=== PATIENT | female | born 1935 | race Caucasian/White ===

== ENCOUNTER 2019-05-27 14:21 | Outpatient (REF) | payer MEDICARE, OTHER, SELFPAY ==
[2019-05-27 15:18] LABS: Absolute Basophil Count 0.01 k/cumm (0.0-0.2); Absolute Eosinophil Count 0.14 k/cumm (0.0-0.7); Absolute Monocyte Count 0.42 k/cumm (0.11-0.7); Absolute Neutrophil Count 2.78 k/cumm (1.2-6.7); Basophils % 0.2; Eosinophils % 2.8; HCT 39.9 % (36.0-46.0); HGB 12.3 g/dL (12.0-15.5); Lymphocytes % 32.3; Mean Corp. HGB Concentration 30.8 g/dL (32.0-36.0); Mean Corpuscular Hemoglobin 30.4 pg (27.0-33.0); Mean Corpuscular Volume 98.8 fL (80-95); Mean Platelet Volume 10.8 fL (8.0-11.0); Monocytes % 8.5; Neutrophils % 56.2; Platelet Count 247 x1000/uL (130-400); RBC 4.04 m/cumm (4.00-5.20); White Blood Cell Count 4.95 k/cumm (4.4-10.8)
[2019-05-27 15:59] LABS: ALT 17 U/L (14-59); AST 14 U/L (15-37); Albumin 3.3 g/dL (3.4-5.0); Alkaline Phosphatase 92 U/L (46-116); Anion Gap 3.9 mmol/L (3-11); BUN 23 mg/dL (7-18); Bilirubin, Total 0.4 mg/dL (0.2-1.0); CO2 37.1 mmol/L (21.0-32.0); CREATININE 1.15 mg/dL (0.55-1.02); Calcium 9.1 mg/dL (8.5-10.1); Chloride 105 mmol/L (98-107); Estimated GFR 45.06 (mL/min/1.73m2); Glucose 108 mg/dL (74-106); Potassium 4.4 mmol/L (3.5-5.1); Sodium 146 mmol/L (136-145); TSH (W/Ref FT4) 0.12 uIU/mL (0.36-3.74); Total Protein 6.8 g/dL (6.4-8.2)
== END 2019-05-27 14:41 ==
LOC: NCHCN 14:21
PROVIDERS: PCP Internal Medicine; Visit Provider Family Medicine
DX: E03.9 Hypothyroidism, unspecified (principal); I50.21 Acute systolic (congestive) heart failure
CPT/HCPCS: 80053; 84439; 84443; 85025

== ENCOUNTER 2020-03-08 19:54 | Outpatient (REF) | payer MEDICARE, OTHER, SELFPAY ==
[2020-03-08 19:18] LABS: HCT 38.8 % (36.0-46.0); HGB 11.9 g/dL (11.2-15.7); MCHC 30.7 % (32.0-36.0); MCV 94.4 fL (80-95); MPV 11.3 fL (8.0-11.0); Platelet Count 258 10^3/uL (130-400); RBC 4.11 10^6/uL (3.93-5.22); RDW 13.3 % (11.7-14.6); RDW-SD 46.4 fL; WBC 5.66 10^3/uL (4.4-10.8)
[2020-03-08 19:31] LABS: Anion Gap 3.9 mmol/L (3-11); BUN 26 mg/dL (7-18); CO2 37.1 mmol/L (21.0-32.0); CREATININE 1.2 mg/dL (0.55-1.02); Calcium 9.2 mg/dL (8.5-10.1); Chloride 102 mmol/L (98-107); Glucose 117 mg/dL (74-106); Magnesium 2.1 mg/dL (1.8-2.4); Potassium 3.9 mmol/L (3.5-5.1); Sodium 143 mmol/L (136-145); TSH (W/Ref FT4) 0.04 uIU/mL (0.36-3.74)
[2020-03-08 19:51] LABS: FREE T4 1.66 ng/dL (0.76-1.46)
== END 2020-03-08 20:14 ==
LOC: NCHCN 19:54
PROVIDERS: PCP Internal Medicine; Visit Provider Family Medicine
DX: I10 Essential (primary) hypertension (principal); E78.5 Hyperlipidemia, unspecified; I48.91 Unspecified atrial fibrillation; Z79.01 Long term (current) use of anticoagulants
CPT/HCPCS: 80048; 85027; 83735; 84439; 84443

== ENCOUNTER 2020-05-11 16:33 | Outpatient (REF) | payer MEDICARE, OTHER, SELFPAY ==
[2020-05-11 17:00] LABS: TSH 0.17 uIU/mL (0.36-3.74)
[2020-05-12 08:39] LABS: T4 11.6 ug/mL (4.7-13.3)
[2020-05-13 17:20] LABS: T3, Total 112 ng/dL (97-169)
== END 2020-05-11 16:34 | disposition home or self-care (01) ==
LOC: NCHCN 16:33
PROVIDERS: PCP Internal Medicine; Visit Provider Family Medicine
DX: E03.9 Hypothyroidism, unspecified (principal)
CPT/HCPCS: 84436; 84443; 84480

== ENCOUNTER 2020-06-19 13:52 | Outpatient (REF) | payer MEDICARE, OTHER, SELFPAY ==
[2020-06-19 16:10] LABS: Anion Gap 5.2 mmol/L (3-11); BUN 29 mg/dL (7-18); CO2 35.8 mmol/L (21.0-32.0); CREATININE 1.3 mg/dL (0.55-1.02); Calcium 8.9 mg/dL (8.5-10.1); Chloride 106 mmol/L (98-107); Estimated GFR 39.02 (mL/min/1.73m2); FREE T4 1.46 ng/dL (0.76-1.46); Glucose 168 mg/dL (74-106); Magnesium 2.1 mg/dL (1.8-2.4); Potassium 3.9 mmol/L (3.5-5.1); Sodium 147 mmol/L (136-145)
== END 2020-06-19 13:53 | disposition home or self-care (01) ==
LOC: NCHCN 13:52
PROVIDERS: PCP Internal Medicine; Visit Provider Family Medicine
DX: I48.91 Unspecified atrial fibrillation (principal); E03.9 Hypothyroidism, unspecified; Z86.79 Personal history of other diseases of the circulatory system
CPT/HCPCS: 80048; 83735; 84439

== ENCOUNTER 2020-12-31 03:49 | Outpatient (CLI) | payer MEDICARE, SELFPAY ==
[2020-12-31 12:22] LABS: Hemoglobin A1C 5.5 % (<5.7)
[2020-12-31 12:50] LABS: Anion Gap 7.3 mmol/L (3-11); BUN 41 mg/dL (7-18); CO2 34.7 mmol/L (21.0-32.0); CREATININE 1.7 mg/dL (0.55-1.02); Chloride 99 mmol/L (98-107); Estimated GFR 28.63 (mL/min/1.73m2); FREE T4 2.07 ng/dL (0.76-1.46); Glucose 103 mg/dL (74-106); Sodium 141 mmol/L (136-145)
== END 2020-12-31 03:50 | disposition home or self-care (01) ==
LOC: LBO 03:50
PROVIDERS: PCP Internal Medicine; Visit Provider Family Medicine
DX: E03.9 Hypothyroidism, unspecified (principal); I10 Essential (primary) hypertension; I48.91 Unspecified atrial fibrillation
CPT/HCPCS: 36415; 80048; 83036; 84439

== ENCOUNTER 2021-05-24 13:06 | Outpatient (REF) | payer MEDICARE, OTHER, SELFPAY ==
[2021-05-24 19:55] LABS: HCT 38.2 % (36.0-46.0); HGB 11.6 g/dL (11.2-15.7); MCH 29.8 pg (27.0-33.0); MCHC 30.4 % (32.0-36.0); MCV 98.2 fL (80-95); MPV 11.3 fL (8.0-11.0); Platelet Count 223 10^3/uL (130-400); RBC 3.89 10^6/uL (3.93-5.22); RDW 13.5 % (11.7-14.6); RDW-SD 48.6 fL; WBC 6.35 10^3/uL (4.4-10.8)
[2021-05-24 20:11] LABS: ALT 17 U/L (14-59); AST 13 U/L (15-37); Albumin 3.4 g/dL (3.4-5.0); Alkaline Phosphatase 91 U/L (46-116); Anion Gap 5.9 mmol/L (3-11); BUN 28 mg/dL (7-18); CO2 37.1 mmol/L (21.0-32.0); CREATININE 1.5 mg/dL (0.55-1.02); Calcium 9.1 mg/dL (8.5-10.1); Chloride 102 mmol/L (98-107); Glucose 130 mg/dL (74-106); Potassium 3.8 mmol/L (3.5-5.1); Sodium 145 mmol/L (136-145); TSH (W/Ref FT4) 0.03 uIU/mL (0.36-3.74); Total Protein 6.6 g/dL (6.4-8.2)
[2021-05-24 20:50] LABS: FREE T4 1.92 ng/dL (0.76-1.46)
== END 2021-05-24 13:07 | disposition home or self-care (01) ==
LOC: NCHCN 13:06
PROVIDERS: PCP Internal Medicine; Visit Provider Family Medicine
DX: I10 Essential (primary) hypertension (principal); I48.91 Unspecified atrial fibrillation; Z79.01 Long term (current) use of anticoagulants
CPT/HCPCS: 80053; 85027; 84439; 84443

== ENCOUNTER 2021-06-21 12:21 | Outpatient (REF) | payer MEDICARE, OTHER, SELFPAY ==
--- NOTE | 2021-06-21 10:00 | SKI_PTH ---
PATIENT: Jesenia Olsen LOC: [facility] U#:[id number] AGE/SX: 86/F ROOM: RE06/21/[address]: Ashvin Stewart DO : 1935 BED: DIS: 06/21/2021 SPEC #: [id number] RECD: 06/21/21 14:08 STATUS: TIEN REQ #: [id number] BRANDON: 06/21/21 10:[address]: Ashvin Stewart DEPT: Surgical Specimen RECD BY: Adina Pinto ENTERED: 06/21/21 14:10 SP TYPE: SKI OTHR DR: Kristen Chavez V Tissues: 1 - SKIN BIOPSY(SHAVE/PUNCH) Procedures: SKIN LEVEL 4 Comments: [id number]
== END 2021-06-21 12:22 | disposition home or self-care (01) ==
LOC: LBN 12:21
PROVIDERS: PCP Family Medicine; Visit Provider Otolaryngology Otolaryngology/Facial Plastic Surgery
DX: L98.8 Other specified disorders of the skin and subcutaneous tissue (principal); Z85.9 Personal history of malignant neoplasm, unspecified
CPT/HCPCS: 88305